=== PATIENT | male | born 1975 | race Caucasian/White ===

== ENCOUNTER → 2020-09-02 | Outpatient (CLI) | payer BC ==
[2020-09-02 10:32] LABS: Alanine Aminotransfer (ALT/SGP 25 U/L (12-78); Albumin, Blood 4.4 g/dL (3.4-5.0); Albumin/Globulin Ratio 1.1 (0.8-1.8); Alk Phos 91 U/L (50-136); Aspartate Aminotrans (AST/SGOT 28 U/L (12-37); Bilirubin, Direct 0.1 mg/dL (0.0-0.3); Bilirubin, Indirect 0.3 mg/dL (0.1-0.7); Bilirubin, Total 0.4 mg/dL (0.1-1.0); CHOL/HDL RATIO 3.9; Cholesterol 124 mg/dL (50-200); Globulin, Blood 4.1 g/dL (2.2-4.0); HDL Cholesterol 32 mg/dL (>39); Low Density Lipoprotein Chol 63 mg/dL (0-110); Total Protein, Blood 8.5 g/dL (6.4-8.2); Triglycerides 145 mg/dL (30-160); Very Low Density Lipoprot Chol 29 mg/dL (6-32)
[2020-09-07 17:08] LABS: 25-HYDROXY, VITAMIN D 32 ng/mL (.); 25-HYDROXY, VITAMIN D-2 <1.0 ng/mL (.); 25-HYDROXY, VITAMIN D-3 32 ng/mL (.)
== END ==
LOC: LAB 09:21 → LAB SHORT 09:21
DX: Z00.00 Encounter for general adult medical examination without abnormal findings (principal)
CPT/HCPCS: 80061; 80076; 82306; 83036; 84443